=== PATIENT | male | born 1965 | race Caucasian/White ===

== ENCOUNTER 2021-11-27 15:29 | Inpatient (IN) | payer OTHER ==
[~2021-11-27] VITALS: Ht 165.1 cm; Wt 75.7 kg
--- NOTE | 2021-11-27 16:10 | NUR ---
BIB Son "Been drinking last 2wks NOT eating. Stopped yesterday now feels sick/nausea/vomiting" The patient denies pain. In room air and denies SOB. Respiration regular and unlabored. Attached the patient to the monitor. Will continue to monitor the patient.
[2021-11-27] MEDS ORDERED: THIAMINE HCL 100 MG TABLET PO ONE (16:30)
[2021-11-27] MEDS ORDERED: IV NS 0.9% 1,000 ML BAG IV ONE (16:30)
[2021-11-27] MEDS ORDERED: LORAZEPAM INJ 2 MG/ML VIAL IV ONE (16:30)
[2021-11-27] MEDS ORDERED: FOLIC ACID 1 MG TABLET PO ONE (16:30)
[2021-11-27] MEDS ORDERED: ONDANSETRON HCL/PF 4 MG/2 ML VIAL IVP ONE (16:30)
[2021-11-27] MEDS ORDERED: ONDANSETRON HCL/PF 4 MG/2 ML VIAL ONE (16:48)
[2021-11-27] MEDS ORDERED: FOLIC ACID 1 MG TABLET ONE (16:49)
[2021-11-27] MEDS ORDERED: THIAMINE HCL 100 MG TABLET ONE (16:49)
[2021-11-27] MEDS ORDERED: LORAZEPAM INJ 2 MG/ML VIAL ONE (16:50)
[2021-11-27 17:42] LABS: BASOPHILS # (AUTO) 0.1 K/uL (0.0-0.2); BASOPHILS % (AUTO) 0.9 % (0.0-2.0); HEMATOCRIT 39 % (39-51); HEMOGLOBIN 13.1 g/dL (13.5-17.5); LYMPHOCYTES # (AUTO) 0.5 K/uL (0.8-4.8); LYMPHOCYTES % (AUTO) 5.4 % (20.0-44.0); MEAN CORPUSCULAR HGB CONC 34 g/dl (31.0-36.0); MEAN CORPUSCULAR VOLUME 93 fL (80-96); MONOCYTES # (AUTO) 0.8 K/uL (0.1-1.30); MONOCYTES % (AUTO) 9.6 % (2.0-12.0); NEUTROPHILS # (AUTO) 7.3 K/uL (1.8-8.9); NEUTROPHILS % (AUTO) 84.1 % (43.0-81.0); PLATELET COUNT (AUTO) 131 K/uL (150-450); RED BLOOD CELL COUNT(AUTO) 4.13 MIL/uL (4.5-6.0); WHITE BLOOD COUNT (AUTO) 8.7 K/uL (4.3-11.0)
[2021-11-27 18:03] LABS: CALCIUM, SERUM 8.8 mg/dL (8.5-10.1); CARBON DIOXIDE 19 mmol/L (21-32); CHLORIDE 91 mmol/L (98-107); CREATININE 1.6 mg/dL (0.6-1.3); GLUCOSE 117 mg/dL (74-106); POTASSIUM 3.6 mmol/L (3.5-5.1); SODIUM SERUM 139 mmol/L (136-145); UREA NITROGEN, BLOOD 9 mg/dL (7-18)
[2021-11-27 18:09] LABS: ALANINE AMINOTRANSFERASE 164 U/L (12-78); ALBUMIN 4.5 g/dL (3.4-5.0); ALCOHOL, BLOOD 5 mg/dL (0-0); ALKALINE PHOSPHATASE 102 U/L (46-116); ASPARTATE AMINOTRANSFERASE 275 U/L (15-37); BILIRUBIN,DIRECT 0.5 mg/dL (0.0-0.2); BILIRUBIN,TOTAL 1.4 mg/dL (0.2-1.0); TOTAL PROTEIN, SERUM 8.1 g/dL (6.4-8.2)
[2021-11-27 18:24] LABS: ACETAMINOPHEN < 0 ug/ml (10-30)
[2021-11-27 18:43] LABS: BILIRUBIN,URINE SMALL (NEGATIVE); COLOR,URINE YELLOW (YELLOW); LEUKOCYTE ESTERASE ,URINE NEGATIVE (NEGATIVE); NITRITE, URINE NEGATIVE (NEGATIVE); PH,URINE 5.5 (5.0-8.0); PROTEIN,URINE 100 mg/dl (NEGATIVE); UGLUCOSE NEGATIVE (NEGATIVE); UROBILINOGEN,URINE 0.2 EU/dL (0.2)
[2021-11-27 18:45] LABS: BACTERIA,URINE Moderate /HPF (None Seen); HYALINE CASTS, URINE Few /LPF (None Seen); SQUAMOUS EPITHELIAL CELL,UR Few /HPF (None Seen); WBC,URINE 0-2 /HPF (0-3)
--- NOTE | 2021-11-27 19:00 | NUR ---
RECIVED PT AWAKE WITH ETOH WITH DROW RESUSBLE WHEN CALL NAME PLAN TO ADMIT PT INPT
--- NOTE | 2021-11-27 19:21 | NUR ---
YOUNG PHILLIPS SEND TO LAB
--- NOTE | 2021-11-27 19:36 | NUR ---
HAND OFF TO SEGUN OCHOA
--- NOTE | 2021-11-27 19:45 | NUR ---
RECEIVED PATIENT AAOX4. PATIENT HAS PERIPHERAL LINE ON RIGHT HAND G18. -SOB, -CP. VITALS CHECKED.
--- NOTE | 2021-11-27 21:10 | NUR ---
REPORT GIVEN TO DON GARZON. PATIENT WILL BE MOVE WITHIN 30 MINS MAX
[2021-11-27] MEDS ORDERED: Z GUARD REMEDY 4 OZ OINT TP PRN (21:30)
[2021-11-27] MEDS ORDERED: LORAZEPAM INJ 2 MG/ML VIAL IV PRN (21:30)
[2021-11-27] MEDS ORDERED: ONDANSETRON HCL/PF 4 MG/2 ML VIAL IVP PRN (21:30)
[2021-11-27] MEDS ORDERED: ACETAMINOPHEN 325 MG TABLET PO PRN (21:30)
--- NOTE | 2021-11-27 21:40 | NUR ---
TRANSFERRED PATIENT TO ROOM
--- NOTE | 2021-11-27 21:40 | NUR ---
TELE/TUFTING MACHINE OPERATOR SINGLE NEEDLE NOTE RECEIVED PT FROM [facility] VIA STACY TO [id number] ACCOMPANIED BY RN/STAFF. DX: ETOH WITHDRAWAL. PT STATES DRINKING ALCOHOL FOR THE PAST 2 WEEKS AND HARDLY EATING. PT ALERT/ORIENTEDX4, ABLE TO VERBALIZE ALL NEEDS. PT DENIES PAIN AT THIS TIME, ONLY C/O FEELING WEAK. RESPIRATIONS EVEN/UNLABORED, ON ROOM AIR. O2 SAT 96%. IV ACCESS: R-HAND #18G INTACT/PATENT/FLUSHES WELL. SKIN INTACT. ORIENTED TO ROOM AND STAFF AND SAFETY INSTRUCTIONS PROVIDED. PT VERBALIZED UNDERSTANDING. PT IN NO ACUTE DISTRESS. WILL CONT TO MONITOR. Addendum: 11/27/21 at 2308 by ROBERTA MALDONADO RN TELE MONITOR READING, SR 74
[2021-11-27] MEDS: ENOXAPARIN SODIUM 40 MG/0.4 ML DISP.SYRIN SQ SCH (22:04)
[2021-11-27] MEDS: IV LR 1000 ML 1,000 ML IV PRN (22:04)
[2021-11-27 22:15] VITALS: BP 151/83
--- NOTE | 2021-11-27 22:46 | NUR ---
RN NOTE RECEIVED CRIT LAB RESULT: LACTIC ACID 2.7. INFORMED ON-CALL HOSP DNP BILLY WHARTON WITH NO NEW ORDERS NOTED
[2021-11-28] VITALS: BP 153/87
[2021-11-28 06:39] LABS: BASOPHILS % (AUTO) 0.7 % (0.0-2.0); EOSINOPHILS % (AUTO) 0.3 % (0.0-6.0); HEMATOCRIT 35 % (39-51); HEMOGLOBIN 12.3 g/dL (13.5-17.5); LYMPHOCYTES # (AUTO) 0.5 K/uL (0.8-4.8); LYMPHOCYTES % (AUTO) 11.6 % (20.0-44.0); MEAN CORPUSCULAR HGB CONC 35 g/dl (31.0-36.0); MEAN CORPUSCULAR VOLUME 92 fL (80-96); MONOCYTES # (AUTO) 0.8 K/uL (0.1-1.30); MONOCYTES % (AUTO) 16.5 % (2.0-12.0); NEUTROPHILS # (AUTO) 3.4 K/uL (1.8-8.9); NEUTROPHILS % (AUTO) 70.9 % (43.0-81.0); PLATELET COUNT (AUTO) 94 K/uL (150-450); RED BLOOD CELL COUNT(AUTO) 3.79 MIL/uL (4.5-6.0); WHITE BLOOD COUNT (AUTO) 4.7 K/uL (4.3-11.0)
--- NOTE | 2021-11-28 07:15 | NUR ---
RN NOTE PT RESTING IN BED, A/OX4. DENIES ANY PAIN. PT ABLE TO AMBULATE TO BR WITH SLOW STEADY GAIT. ALSO USED URINAL AND VOIDED X3 THIS SHIFT. TELE MONITOR READING SR, 71. PT STABLE THROUGHOUT THE NIGHT. ENDORSED TO NEXT SHIFT NURSE.
--- NOTE | 2021-11-28 07:16 | NUR ---
SS consult requested for alcohol abuse. SS will follow up at a later time.
[2021-11-28 08:00] VITALS: BP 151/82
[2021-11-28] MEDS: MULTIVITAMINS,THERAGRAN 1 UDTAB TABLET PO SCH (08:09)
[2021-11-28] MEDS: FOLIC ACID 1 MG TABLET PO SCH (08:09)
[2021-11-28] MEDS: THIAMINE HCL 100 MG TABLET PO SCH (08:09)
[2021-11-28] MEDS: PANTOPRAZOLE 40 MG TABLET.DR PO SCH (08:09)
[2021-11-28 08:23] LABS: ALBUMIN 3.4 g/dL (3.4-5.0); BILIRUBIN,TOTAL 1.9 mg/dL (0.2-1.0); MAGNESIUM 1.4 mg/dL (1.8-2.4); PHOSPHORUS 2.8 mg/dL (2.5-4.9); TOTAL PROTEIN, SERUM 6.3 g/dL (6.4-8.2)
[2021-11-28 08:25] LABS: EOSINOPHILS % (MANUAL) 1 % (0-4); LYMPHOCYTES % (MANUAL) 9 % (16-48); MONOCYTES % (MANUAL) 19 % (0-11.0); NEUTROPHILS % (MANUAL) 71 (42-76)
[2021-11-28] MEDS ORDERED: POTASSIUM CHLORIDE 20 MEQ TAB.PRT.SR PO ONE ×2 (10:00→14:00)
[2021-11-28] MEDS: IV LR 1000 ML 1,000 ML IV PRN (11:15)
[2021-11-28] MEDS: Magnesium 1GM/D5W 100ML PREMIX 100 ML IV SCH ×2 (11:18→14:45)
--- NOTE | 2021-11-28 12:36 | NUR ---
SS Note: SS received consult for ETOH. Pt. Is a 56-year-old male who demonstrates adequate insight to the reason for hospitalization. Per EMR, pt. presents to the hospital for alcohol withdrawal. Pt. was oriented x4, alert, and cooperative. During interview, pt. was capable of following directions and appeared groomed. Pt.s speech was at a normal rate and pt.s mood was elevated. Pt. reported no hx of mental health, denies suicidal ideation and homicidal ideation. Pt. denies auditory hallucinations, visual hallucinations, paranoia, or delusions. Pt. stated that he drinks alcohol everyday [a bottle of Tequila everyday]. Per pt., he would stop for couple weeks then continue to drink. Pt. stated that he never been to rehab and is not willing to now. SW explored pt.s living situation. Per pt., he lives with his son Dereck and daughter [[id number] [place] [address]], pt. was able to confirm address. Pt. stated that he is ambulatory and is independent with his ADLs. Pt. currently works, pt. repairs shoes. Plan: SW provided available resources and pt. accepted. Upon discharge, per pt., he will return home with his children [[id number] [place] [address]]. Resources Provided: Substance Abuse resources provided included: [facility] Substance Abuse Self-Helpline ([facility]) ; [facility] [id number] [place] [id number] ; [facility] [address] [facility] [address] ; [facility] [address] [facility] [address] ; [facility] [address] [facility] [address] ; [facility] [address] [facility] [address] ; [facility] [address] [facility] [address] [facility] [id number] ; [facility] Substance Abuse Helpline([facility] ; [facility] ; [facility] [place]; [facility] [place]; [facility] [place]; [facility] [place]; [facility]; [facility]; [facility] [place]; [facility], [facility]. Enrique Peacock; Alcoholics Anonymous [facility]; [facility] ; Marijuana [facility]; Narcotics Anonymous www.na.org;
[2021-11-28 16:00] VITALS: BP 154/88
--- NOTE | 2021-11-28 18:00 | NUR ---
MEDICATED FOR NAUSEA X1,STATES VOMITED SMALL AMT. AFTER HE ATE,GIVEN POTASSIUM AND MG. REPLACEMENTS.
[2021-11-28 20:00] VITALS: BP 154/89
[2021-11-28] MEDS: ENOXAPARIN SODIUM 40 MG/0.4 ML DISP.SYRIN SQ SCH (22:43)
[2021-11-29] VITALS: BP 147/94
[2021-11-29 04:00] VITALS: BP 177/99
[2021-11-29] MEDS: IV LR 1000 ML 1,000 ML IV PRN (05:19)
--- NOTE | 2021-11-29 05:29 | NUR ---
MS/TELE/RN PER PATIENT HE IS SHAKING, BP 177/99, HR 131, ATIVAN 2 MG SLOW IVP WAS GIVEN ORDERED. WILL MONITOR.
[2021-11-29 06:30] VITALS: BP 132/89
--- NOTE | 2021-11-29 06:44 | NUR ---
MS/TELE/RN AT 06:30, BP 132/89, HR 69, PATIENT VERBALISED FEELING MUCH BETTER, PATIENT WAS AWAKE, ALERT AND ORIENTED, ALL NEEDS ATTENDED AT THIS TIME, WILL CONTINUE TO MONITOR
[2021-11-29 06:53] LABS: CALCIUM, SERUM 8.3 mg/dL (8.5-10.1); POTASSIUM 3.1 mmol/L (3.5-5.1)
[2021-11-29 08:00] VITALS: BP 180/99
[2021-11-29] MEDS ORDERED: MAGNESIUM OXIDE 400 MG TABLET PO ONE (08:00)
[2021-11-29] MEDS ORDERED: POTASSIUM CHLORIDE 20 MEQ TAB.PRT.SR PO ONE ×2 (08:00→12:00)
--- NOTE | 2021-11-29 08:05 | NUR ---
RN OPENING NOTE PATIENT RECEIVED IN BED, AO X 4, ABLE TO RESPONDS ALL STIMULI. IN NO ACUTE DISTRESS NOTED. RESPIRATORY EVEN AND UNLABORED ON ROOM AIR. SKIN IS WARM TO TOUCH, KEEP CLEAN/DRY. KEPT ELEVATED HOB FOR ENSURE AIRWAY AND ASPIRATION PRECAUTION, ALSO LOWEST POSITION OF THE BED, S/R UP X 3, BED ALARM IS ON AT ALL THE TIMES. ALL SAFETY PRECAUTION APPLIED. CALL LIGHT WITHIN REACH, WILL CONTINUE TO MONITOR.
[2021-11-29] MEDS: PANTOPRAZOLE 40 MG TABLET.DR PO SCH (08:16)
[2021-11-29] MEDS: FOLIC ACID 1 MG TABLET PO SCH (08:16)
[2021-11-29] MEDS: MULTIVITAMINS,THERAGRAN 1 UDTAB TABLET PO SCH (08:16)
[2021-11-29] MEDS: THIAMINE HCL 100 MG TABLET PO SCH (08:17)
[2021-11-29 12:00] VITALS: BP 160/83
--- NOTE | 2021-11-29 13:25 | NUR ---
PATIENT D/C TO HOME, GIVEN DISCHARGE INSTRUCTION INCLUDE FOLLOW UP WITH PRIMARY PHYSICIAN. PATIENT IN STABLE CONDITION, DENIES PAIN OR ANY DISCOMFORT.
== END 2021-11-29 13:30 | disposition home or self-care (01) | DRG 775 ==
LOC: ER 15:32 → TELE 20:59
PROVIDERS: ADMIT Nurse Practitioner Acute Care; ATTEND Nurse Practitioner Acute Care
DX: F10.239 Alcohol dependence with withdrawal, unspecified (principal); N17.0 Acute kidney failure with tubular necrosis; E87.2 Acidosis; Y90.0 Blood alcohol level of less than 20 mg/100 ml; R74.01 Elevation of levels of liver transaminase levels; D69.59 Other secondary thrombocytopenia; E83.42 Hypomagnesemia; E86.0 Dehydration; E87.6 Hypokalemia; I10 Essential (primary) hypertension; R17 Unspecified jaundice; Z87.891 Personal history of nicotine dependence; Z20.822 Contact with and (suspected) exposure to COVID-19
CPT/HCPCS: 36415; 80048-TC; 80053-TC; 80061-TC; 80076-TC; 81001; 82962-TC; 83605-TC; 83735-TC; 84100-TC; 85025-TC; 87081-TC; 87086-TC; 97116-TC; 97530-TC; C9803; G0378; G0480; J1650; J2060; J2405; J3475; J7030; J7120